=== PATIENT | female | born 1985 ===

== ENCOUNTER → 2017-10-16 | Outpatient (CLI) | payer OTHER ==
[~2017-10-16] MED LIST: AMOX-559 PO; FLUT16SP19 NS; OMEP-125 PO; POLY10DR20 OP; SULF-198 PO
== END ==
LOC: LAB 13:45
PROVIDERS: ATTEND Nurse Practitioner Primary Care
DX: M54.9 Dorsalgia, unspecified (principal); R30.0 Dysuria
CPT/HCPCS: 81001; 87088

== ENCOUNTER → 2017-10-22 | Outpatient (CLI) | payer OTHER ==
[2017-10-22 10:24] LABS: LDL CHOLESTEROL 138 mg/dl
== END ==
LOC: LAB 09:10
PROVIDERS: ATTEND Obstetrics & Gynecology
DX: Z01.419 Encounter for gynecological examination (general) (routine) without abnormal findings (principal); N64.52 Nipple discharge
CPT/HCPCS: 36415; 82040; 82247; 82310; 82374; 82435; 82465; 82565; 82947; 83036; 83718; 84075; 84132; 84146; 84155; 84295; 84443; 84450; 84460; 84478; 84520; 85027

== ENCOUNTER → 2018-06-15 | Outpatient (CLI) | payer OTHER ==
--- NOTE | 2018-06-17 08:24 | RADIOLOGY IMAGING REPORT ---
FACILITY: [facility] PATIENT NAME: KAYLEE GALEANA : [id number] MR: [id number] V: [id number] EXAM DATE: [id number] ORDERING PHYSICIAN: ASHLEY RICE TECHNOLOGIST: Eileen Kurtz PROCEDURE:LEFT DIGITAL DIAGNOSTIC MAMMOGRAM WITH CAD ASSISTED INTERPRETATION & 3D TOMOSYNTHESIS COMPARISON:Today's Left breast Ultrasound & the Prior diagnostic mammogram & Left breast Ultrasound of 01/26/17. INDICATIONS:Skin dimpling approximate 3 o'clock position of the Left breast posterior 1/3. FINDINGS: The breasts are heterogeneously dense which can obscure small masses. Multiple lobular masses are again seen throughout the Left breast. They appear similar to the prior study. Today's Ultrasound does demonstrate multiple cysts in the Left breast. There is an area of potential spiculation in the lateral portion of the Left breast junction of the middle and posterior 1/3's best appreciated on Tomographic slice 36. In the upper portion of Left breast on the Left mediolateral Tomographic image 27 there also appears to be an area of spiculation of architectural distortion. Bilateral breast MR with and without contrast is recommended for further evaluation. DIAGNOSTIC CATEGORY 0--INCOMPLETE: NEED ADDITIONAL IMAGING EVALUATION. RECOMMENDATIONS: BREAST MRI: BILATERAL BREASTS. IMPRESSION: BIRADS 0: Incomplete. Bilateral breast MR with and without contrast recommended as described above. Dictated by: Genna Fan M.D. on 06/15/2018 at 16:41 Transcribed by: WING on 06/16/2018 at 9:37 Approved by: Genna Fan M.D. on 06/17/2018 at 8:23 [facility]
--- NOTE | 2018-06-17 08:25 | RADIOLOGY IMAGING REPORT ---
FACILITY: [facility] PATIENT NAME: KAYLEE GALEANA : [id number] MR: [id number] V: [id number] EXAM DATE: ORDERING PHYSICIAN: ASHLEY RICE TECHNOLOGIST: Yeimi Guerrier RT(R)(CT) PROCEDURE:US LEFT BREAST COMPARISON:Today's Left mammogram and prior Left breast Ultrasound from 01/26/17. INDICATIONS:Dimpling of the Left breast in the upper outer quadrant FINDINGS: In the 2 o'clock position of the Left breast 4cm from the nipple there is a 8mm cyst with a small eccentric calcification. In the 3 o'clock position of the Left breast 4cm from the nipple there is a circumscribed hypoechoic lobular region with faint acoustic shadowing. This may represent a small cluster of cysts measures approximately 9 x 7mm. In the 4 o'clock position of the Left breast there are 2 contiguous cysts which were not measured and an adjacent larger cyst. In the location of patient's dimpling which is reported in the approximate 3 o'clock position in the posterior 1/3 no abnormality could be demonstrated. DIAGNOSTIC CATEGORY 0--INCOMPLETE: NEED ADDITIONAL IMAGING EVALUATION. RECOMMENDATIONS: BREAST MRI: BILATERAL BREASTS. IMPRESSION: BIRADS 0: Incomplete. MR of the breast with and without contrast recommended in light of patient's reported dimpling of her skin in the approximate 3 o'clock position of the Left breast posterior 1/3 with no sonographic correlate. The lobular area of decreased echogensity in the 3 o'clock position of the Left breast 4cm from the nipple could also be evaluated at that time. Dictated by: Genna Fan M.D. on 06/15/2018 at 16:36 Transcribed by: WING on 06/16/2018 at 9:47 Approved by: Genna Fan M.D. on 06/17/2018 at 8:23 [facility]
== END ==
LOC: MAMO 01:16
PROVIDERS: ATTEND Obstetrics & Gynecology
DX: R92.8 Other abnormal and inconclusive findings on diagnostic imaging of breast (principal)
CPT/HCPCS: 77061; 77065

== ENCOUNTER → 2018-06-21 | Outpatient (CLI) | payer OTHER ==
[~2018-06-21] MED LIST changes: +GADOBENATE 529MG/1ML 15ML VIAL IVP ONE; +NS(*) 0.9% 50 ML BAG 50 ML ONE
--- NOTE | 2018-06-25 11:24 | RADIOLOGY IMAGING REPORT ---
FACILITY: [facility] PATIENT NAME: KAYLEE GALEANA : [id number] MR: [id number] V: [id number] EXAM DATE: ORDERING PHYSICIAN: ASHLEY RICE TECHNOLOGIST: Maria L Flores PROCEDURE:BREAST BILATERAL W/O AND/OR WITH CONTRAST COMPARISON:Left breast Ultrasound of 06/15/18, diagnostic Left mammogram of 06/15/18, bilateral diagnostic mammogram of 01/26/17 INDICATIONS:dimpling lateral aspect of Left breast skin, abnormal Lt breast Ultrasound TECHNIQUE:All imaging was performed prone in a dedicated breast coil. Axial & coronal T1 weighted images, axial T2 weighted images, axial STIR images, axial gradient echo images & axial T1 weighted dynamic enhanced imaging was performed of both breasts using 5 dynamic sequences. The dynamic series was timed for a 90 second peak. Subtraction imaging was performed. 15ml Multihance was utilized for the post contrast portion of the examination. Post processing was performed using a [employer] workstation. A vitamin E capsule was placed on the patient's skin over the area of dimpling. FINDINGS: Heterogeneous fibroglandular tissue is seen throughout the breasts. There is moderate asymmetric background parenchymal enhancement. There are numerous cysts scattered throughout both breasts. The largest cyst in the lateral aspect of the Right cyst in the approximate 9 o'clock position measures 6.2 x 4.4cm. Two contiguous cysts in the medial portion of the Left breast in the approximate 9 o'clock position measure 2.5 x 2cm. There is no evidence of skin thickening or underlying mass lesion in the location of patient's reported skin dimpling. No abnormal enhancement is identified in this location. Small fatty replaced lymph nodes are seen in the axilla bilaterally. No abnormal enhancement identified within the visualized portion of the liver nor within the bones. DIAGNOSTIC CATEGORY 2--BENIGN FINDING. IMPRESSION: BIRADS 2: Benign finding. There are numerous cysts scattered throughout both breasts. No abnormal enhancement, skin thickening or underlying mass lesion is identified in the 3 o'clock position of the Left breast in the location of patient's reported skin dimpling. Therefore clinical follow up recommended. Of note a negative mammogram or Ultrasound report should not preclude biopsy of a clinically suspicious lesion. RECOMMENDATIONS: Clinical follow up. CLINICAL EVALUATION. PLEASE NOTE:A NORMAL MRI DOES NOT EXCLUDE THE POSSIBILITY OF BREAST CANCER. A CLINICALLY SUSPICIOUS PALPABLE LUMP SHOULD BE BIOPSIED. CORRELATION WITH CLINICAL EXAM AND OTHER IMAGING STUDIES IS RECOMMENDED. Dictated by: Genna Fan M.D. on 06/22/2018 at 12:01 Transcribed by: MAR on 06/25/2018 at 9:20 Approved by: Genna Fan M.D. on 06/25/2018 at 11:23 [facility]
== END ==
LOC: MRI 00:54
PROVIDERS: ATTEND Obstetrics & Gynecology
DX: R92.8 Other abnormal and inconclusive findings on diagnostic imaging of breast (principal); Z87.2 Personal history of diseases of the skin and subcutaneous tissue
CPT/HCPCS: 77049; A9577; J7050